=== PATIENT | female | born 1980 | race Two or more races ===

== ENCOUNTER 2020-01-26 18:43 | Emergency (ER) | payer OTHER ==
[~2020-01-26] VITALS: Ht 167.6 cm; Wt 99.8 kg
[2020-01-26] MEDS ORDERED: ACETAMINOPHEN 500 MG TAB PO ONE (23:45)
[2020-01-27 01:33] VITALS: BP 158/79
== END 2020-01-27 03:03 | disposition home or self-care (01) ==
LOC: ER 18:43
DX: M54.5 Low back pain (principal); M54.6 Pain in thoracic spine; M62.838 Other muscle spasm; M54.2 Cervicalgia
CPT/HCPCS: 72040; 72070